=== PATIENT | female | born 2000 | race Caucasian/White ===

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

== ENCOUNTER 2019-05-19 10:54 | Outpatient (RCR) | payer OTHER ==
[~2019-05-19 10:54] MED LIST changes: +IBU800 M1 PO
== END 2019-08-17 | disposition home or self-care (01) ==
LOC: WSOH
DX: S16.1XXA Strain of muscle, fascia and tendon at neck level, initial encounter (principal); S29.012A Strain of muscle and tendon of back wall of thorax, initial encounter; Y99.0 Civilian activity done for income or pay

== ENCOUNTER 2019-12-13 10:44 | Emergency (ER) | payer SELFPAY ==
[~2019-12-13] VITALS: Ht 157.5 cm; Wt 125.0 kg
[2019-12-13] MEDS ORDERED: PROAIR HFA0.09 MG/AC INH (11:16)
[2019-12-13 11:24] LABS: BASO % 0.3 % (0.0-2.0); EOS # 0.2 (0.0-0.7); EOS % 2.7 % (0-4.0); GRAN # 5.2 (1.4-6.5); GRAN % 58.9 % (42.2-75.2); HEMATOCRIT 43.2 % (35.0-45.0); HEMOGLOBIN 14.1 g/dl (12.0-15.0); LYMPH # 2.9 (1.2-3.4); LYMPH % 32.2 % (20.0-51.0); MEAN CELL VOLUME 86 fl (80.0-95.0); MEAN CORPUSCULAR HEMOGLOBIN 28 pg (26.0-32.0); MEAN CORPUSCULAR HGB CONC 33 g/dl (33.0-37.0); MEAN PLATELET VOLUME 9.4 fl (7.4-10.4); MONO # 0.5 (0.1-0.6); MONO % 5.8 % (1.7-9.3); PLATELET COUNT 309 K/mm3 (130-400); RED BLOOD COUNT 5.01 M/mm3 (4.10-5.30); REDCELL DISTRIBUTION WIDTH-CV 12.9 % (11.5-14.5)
[2019-12-13 11:31] LABS: ALANINE AMINOTRANSFERASE 21 U/L (4-34); ALBUMIN 4.5 gm/dL (3.5-5.0); ALKALINE PHOSPHATASE 76 U/L (50-136); ANION GAP 8 mmol/L (7-16); AST,SGOT 24 U/L (15-37); BILIRUBIN,TOTAL 0.6 mg/dL (0.0-1.0); BLOOD UREA NITROGEN 13 mg/dL (7-17); C-REACTIVE PROTEIN 1.1 mg/dL (0.0-0.9); CALCIUM 9.5 mg/dL (8.4-10.2); CARBON DIOXIDE 26 mmol/L (22-30); CHLORIDE 105 mmol/L (98-107); CREATININE, serum 0.65 (0.52-1.25); GLUCOSE 90 mg/dL (74-106); POTASSIUM 4.4 mmol/L (3.4-5.0); SODIUM 138 mmol/L (137-145); TOTAL PROTEIN 7.8 gm/dL (6.4-8.2)
[2019-12-13 11:39] LABS: TROPONIN-I < 0.012 ng/mL (0.000-0.035)
[2019-12-13] MEDS ORDERED: CLEVER CHOICE1 EA20 MC (12:13)
[2019-12-13 12:22] VITALS: BP 138/93; PULSE 102; TEMP 98.1
== END 2019-12-13 12:25 | disposition home or self-care (01) ==
LOC: COL.ER 10:44
PROVIDERS: Physician Assistant
DX: R06.00 Dyspnea, unspecified (principal)
CPT/HCPCS: J7030

== ENCOUNTER 2020-09-28 12:48 | Emergency (ER) | payer SELFPAY ==
[~2020-09-28] VITALS: Ht 157.5 cm; Wt 127.3 kg
[~2020-09-28 12:48] MED LIST changes: +CLEVER CHOICE1 EA20 MC; +PROAIR HFA0.09 MG/AC INH
[2020-09-28 13:08] VITALS: TEMP 98.6
[2020-09-28 14:23] VITALS: BP 121/66
[2020-09-28 14:52] LABS: BASO # 0.1 (0.0-0.2); BASO % 0.5 % (0.0-2.0); EOS # 0.2 (0.0-0.7); EOS % 2.4 % (0-4.0); GRAN # 6.1 (1.4-6.5); GRAN % 62.4 % (42.2-75.2); HEMOGLOBIN 13.1 g/dl (12.5-16.0); LYMPH # 2.7 (1.2-3.4); LYMPH % 27.3 % (20.0-51.0); MEAN CELL VOLUME 88 fl (80.0-100.0); MEAN CORPUSCULAR HEMOGLOBIN 28 pg (27.0-31.0); MEAN CORPUSCULAR HGB CONC 32 g/dl (33.0-37.0); MEAN PLATELET VOLUME 9.5 fl (7.4-10.4); MONO # 0.7 (0.1-0.6); MONO % 7.1 % (1.7-9.3); PLATELET COUNT 314 K/mm3 (130-400); RED BLOOD COUNT 4.68 M/mm3 (4.10-5.30); REDCELL DISTRIBUTION WIDTH-CV 12.7 % (11.5-14.5)
[2020-09-28 14:57] LABS: ANION GAP 9 mmol/L (7-16); BLOOD UREA NITROGEN 10 mg/dL (7-17); CALCIUM 9.3 mg/dL (8.4-10.2); CARBON DIOXIDE 27 mmol/L (22-30); CHLORIDE 104 mmol/L (98-107); CREATININE, serum 0.78 (0.52-1.25); GLUCOSE 87 mg/dL (74-106); POTASSIUM 4.2 mmol/L (3.4-5.0); SODIUM 140 mmol/L (137-145)
[2020-09-28 15:13] LABS: TROPONIN-I < 0.012 ng/mL (0.000-0.035)
[2020-09-28 16:42] VITALS: PULSE 75
== END 2020-09-28 16:05 | disposition home or self-care (01) ==
LOC: COL.ER 12:48
PROVIDERS: Physician Assistant
DX: R07.9 Chest pain, unspecified (principal); F41.9 Anxiety disorder, unspecified; E66.01 Morbid (severe) obesity due to excess calories

== ENCOUNTER → 2021-02-26 | Outpatient (CLI) | payer SELFPAY ==
[~2021-02-26] VITALS: Ht 160 cm; Wt 125.0 kg
[~2021-02-26] MED LIST changes: +ASPIRIN E.C. 8181 MG PO; +MOTRIN 800800 MG/TAB PO; +PRENATAL TABLET PO; +TYLENOL 500MG500 MG PO
[2021-02-26 08:00] VITALS: PULSE 78
[2021-02-26 08:34] VITALS: BP 132/79; PULSE 86; TEMP 97.6
--- NOTE | 2021-02-26 08:43 | NUR ---
0800 PATIENT HERE FOR COMPLAINTS OF PAIN IN VAGINA THAT MOVES TO LEFT SIDE. NO CONTRACTIONS FELT PER PATIENT OR ON MONITOR. EFM ON FHT 125 BABY VERY ACTIVE. ASSESSMENT COMPLETED. DR JARVIS CALLED AND UPDATEED. LAB ORDERS GIVEN
--- NOTE | 2021-02-26 08:45 | NUR ---
0840 ORDERS TO TAKE PATIENT OFF MONITOR AT THIS TIME
[2021-02-26 09:00] LABS: MEAN CELL VOLUME 87 fl (80.0-100.0); MEAN CORPUSCULAR HEMOGLOBIN 29 pg (27.0-31.0); MEAN CORPUSCULAR HGB CONC 33 g/dl (33.0-37.0); MEAN PLATELET VOLUME 10.3 fl (7.4-10.4); PLATELET COUNT 217 K/mm3 (130-400); RED BLOOD COUNT 4.16 M/mm3 (4.10-5.30); REDCELL DISTRIBUTION WIDTH-CV 13.7 % (11.5-14.5)
[2021-02-26 09:04] LABS: HEMATOCRIT 36.3 % (37.0-47.0)
[2021-02-26 09:11] LABS: ALBUMIN 3.4 gm/dL (3.5-5.0); BILIRUBIN,TOTAL 0.3 mg/dL (0.0-1.0); CALCIUM 8.9 mg/dL (8.4-10.2); CREATININE, serum 0.42 (0.52-1.25); POTASSIUM 3.9 mmol/L (3.4-5.0); TOTAL PROTEIN 6.7 gm/dL (6.4-8.2)
[2021-02-26 09:37] LABS: COLLECTION METHOD CLEAN CATCH
[2021-02-26 09:43] LABS: MUCOUS Present /lpf; PH 7 (5-8); URINE APPEARANCE Cloudy; URINE BACTERIA Rare /hpf; URINE BILIRUBIN Negative (NEGATIVE); URINE BLOOD Negative (NEGATIVE); URINE COLOR Yellow; URINE GLUCOSE Negative (NEGATIVE); URINE KETONE Negative (NEGATIVE); URINE LEUKOCYTE ESTERASE Negative (NEGATIVE); URINE NITRATE Negative (NEGATIVE); URINE PROTEIN(semi-quant) Negative (NEGATIVE); URINE RBC 0-2 /hpf; URINE UROBILINOGEN Negative (NEGATIVE); URINE WBC 0-2 /hpf
--- NOTE | 2021-02-26 09:50 | NUR ---
4462 ALL LABS CALLED TO DR JARVIS. ORDERS TO DISMISS TO HOME WITH VERBAL UNDERSTANDING NOTED.
== END ==
LOC: LDRO 08:01
PROVIDERS: Obstetrics & Gynecology
DX: O26.892 Other specified pregnancy related conditions, second trimester (principal); R10.30 Lower abdominal pain, unspecified; Z3A.23 23 weeks gestation of pregnancy

== ENCOUNTER 2021-03-11 18:50 | Outpatient (CLI) | payer MEDICAID ==
[~2021-03-11] VITALS: Ht 160 cm; Wt 125.9 kg
[~2021-03-11 18:50] MED LIST changes: -ASPIRIN E.C. 8181 MG PO; -MOTRIN 800800 MG/TAB PO; -PRENATAL TABLET PO; -TYLENOL 500MG500 MG PO
[2021-03-11] MEDS ORDERED: ASPIRIN E.C. 8181 MG PO (19:13)
[2021-03-11] MEDS ORDERED: PRENATAL TABLET PO (19:14)
[2021-03-11 19:30] VITALS: BP 133/79; PULSE 76; TEMP 97.9
--- NOTE | 2021-03-11 19:40 | NUR ---
1900 G2L1 at 25.2 weeks gestation to L&D with c/o decreased movement. She states that she last felt movement yesterday. She denies regular contractions stating that she feels "maybe one or two vilma hick contractions a day". She denies leaking of fluid or vaginal bleeding. EFMs explained and applied. FHR 130 bpm and reactive. No CTX per toco. VSS. 1909 Dr. Henley on unit and updated on patient. Orders to discharge home after reactive NST received. Plan of care updated with patient and partner. 1932 NST reviewed by this nurse and LINA Zuluaga. Patient off EFM and discharge instructions reviewed. 1939 Patient discharged home in stable condition.
== END 2021-03-11 19:40 | disposition home or self-care (01) ==
LOC: LDRO 18:50
DX: O36.8190 Decreased fetal movements, unspecified trimester, not applicable or unspecified (principal); Z3A.25 25 weeks gestation of pregnancy

== ENCOUNTER 2021-03-25 18:26 | Outpatient (CLI) | payer MEDICAID ==
[~2021-03-25] VITALS: Ht 160 cm; Wt 125.9 kg
[~2021-03-25 18:26] MED LIST changes: +ASPIRIN E.C. 8181 MG PO; +PRENATAL TABLET PO
[2021-03-25 18:50] VITALS: BP 130/62; PULSE 88; TEMP 98.1
[2021-03-25 19:30] VITALS: PULSE 78
== END 2021-03-25 22:50 | disposition home or self-care (01) ==
LOC: LDRO 18:26 → LDR 19:31 → LDRO 22:50
DX: O9A.212 Injury, poisoning and certain other consequences of external causes complicating pregnancy, second trimester (principal); Z3A.27 27 weeks gestation of pregnancy
CPT/HCPCS: OP; J2791

== ENCOUNTER 2021-04-24 14:54 | Outpatient (CLI) | payer MEDICAID ==
[~2021-04-24] VITALS: Ht 160 cm; Wt 129.5 kg
[2021-04-24 15:30] VITALS: BP 130/58; PULSE 97; TEMP 98.2
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
[2021-04-24 15:50] VITALS: BP 131/75; PULSE 85
[2021-04-24 15:57] VITALS: BP 133/74
--- NOTE | 2021-04-24 16:20 | NUR ---
FHT: 1530: DIFFICULTY TRACING FHT DUE TO MOVEMENT AND MATERNAL HABITUS. RN REMAINED AT BS ADJUSTING US 1557: DIFFICULTY DETERMINING FHT DUE TO WANDERING BASELINE. MODERATE VARIABILITY NOTED. STRIP REVIEWED BY DR. JARVIS. PER DR. JARVIS "BABY LOOKS GREAT"
--- NOTE | 2021-04-24 16:21 | NUR ---
1615: PT. AMBULATORY OFF UNIT FOR DISCHARGE. RN WENT OVER DISCHARGE INSTRUCTIONS W/ PT. AND NO QUESTIONS OR CONCERNS AT THIS TIME. WENT OVER RETURN PRECAUTIONS AND PT. STATES UNDERSTANDING. RN ACCOMPANIED PT. TO DOORS OF UNIT AND INFORMED HER TO CALL OR COME BACK IF SHE IS CONCERNED OR HAS ANY QUESTIONS ON HER DISCHARGE PAPERWORK. PT. STABLE AT THIS TIME
== END 2021-04-24 16:15 | disposition home or self-care (01) ==
LOC: LDRO 14:54 → LDR 15:00 → LDRO 16:15
DX: O26.893 Other specified pregnancy related conditions, third trimester (principal); R25.2 Cramp and spasm; Z3A.31 31 weeks gestation of pregnancy
CPT/HCPCS: OP

== ENCOUNTER 2021-05-04 14:28 | Outpatient (CLI) | payer MEDICAID ==
[~2021-05-04] VITALS: Ht 160 cm; Wt 129.1 kg
[2021-05-04 15:00] VITALS: BP 133/82; PULSE 96
--- NOTE | 2021-05-04 15:00 | NUR ---
1430- Pt arrives on unit ambulatory with complaints of cramping since last night. Pt states the cramping is accompanied by diarrhea occationally. Pt denies VB, LOF. +FM but Pt states feels less than normal due to cramping. Pt oriented to room, into bathroom to change into gown. 1440- Pt into bed, EFM and TOCO on and tracing. O2 sat monitor on and tracing maternal HR. VSS. Assessment completed.
[2021-05-04 15:10] LABS: COLLECTION METHOD CLEAN CATCH
[2021-05-04 15:22] LABS: MUCOUS Present /lpf; PH 5 (5-8); URINE APPEARANCE Cloudy; URINE BACTERIA Rare /hpf; URINE BILIRUBIN Negative (NEGATIVE); URINE BLOOD Negative (NEGATIVE); URINE COLOR Amber; URINE GLUCOSE Negative (NEGATIVE); URINE KETONE Negative (NEGATIVE); URINE LEUKOCYTE ESTERASE Negative (NEGATIVE); URINE NITRATE Negative (NEGATIVE); URINE PROTEIN(semi-quant) 1+ (NEGATIVE); URINE UROBILINOGEN Negative (NEGATIVE)
[2021-05-04 15:30] VITALS: BP 135/78; PULSE 95
[2021-05-04 16:00] VITALS: BP 133/77; PULSE 93
--- NOTE | 2021-05-04 16:15 | NUR ---
1600- EFM and TOCO off. Discussed labor precautions, movement counts, when to return to hospital, need to follow-up in office on Friday05/08/21. Questions answered. Pt up to change. 1615- Paperwork and education provided. Pt ambulates off unit with significant other.
== END 2021-05-04 16:15 | disposition home or self-care (01) ==
LOC: LDRO 14:28 → LDR 14:35 → LDRO 16:15
PROVIDERS: Obstetrics & Gynecology
DX: O26.893 Other specified pregnancy related conditions, third trimester (principal); R25.2 Cramp and spasm; Z3A.33 33 weeks gestation of pregnancy
CPT/HCPCS: OP

== ENCOUNTER 2021-05-27 17:07 | Outpatient (CLI) | payer MEDICAID ==
[~2021-05-27] VITALS: Ht 160 cm; Wt 290.0 kg
[2021-05-27 17:15] VITALS: BP 118/63; PULSE 86; TEMP 98.1
[2021-05-27 17:43] VITALS: PULSE 76
--- NOTE | 2021-05-27 17:43 | NUR ---
1713 PATIENT HERE FOR COMPLAINTS THAT SHE HAS NOT FELT BABY MOVE TODAY. EFM ON FHT 120 BABY VERY ACTIVE AT THIS TIME. MOM FEELS MOVEMENT NOW. DENIES NEEDS. DR JARVIS HERE AND UPDATED ON ABOVE INFORMATION. ORDERS TO OBTAIN 20 MA STRIP THE N DIS MISS TO HOME
--- NOTE | 2021-05-27 17:45 | NUR ---
1740 REACTIVE STRIP NOTED AT THIS TIME. DR JARVIS REVIEWED STRIP AND ORDERS TO DISMISS TO HOME.
== END 2021-05-27 17:46 | disposition home or self-care (01) ==
LOC: LDRO 17:07
DX: O36.8130 Decreased fetal movements, third trimester, not applicable or unspecified (principal); Z3A.36 36 weeks gestation of pregnancy

== ENCOUNTER 2021-06-11 11:16 | Outpatient (CLI) | payer MEDICAID ==
[2021-06-11] VITALS (7 sets, daily range): BP systolic 120–136; BP diastolic 68–78; PULSE 72–86; TEMP 98.5
[~2021-06-11] VITALS: Ht 160 cm; Wt 133.2 kg
--- NOTE | 2021-06-11 11:20 | NUR ---
Presents to L&D, as sent over from office for monitoring for BPP 12/07. Patient reports, "I'm so anxious. My anxiety is really bad today."
--- NOTE | 2021-06-11 15:05 | NUR ---
Discharge instructions reviewed with patient and SO who verbalize understanding. Ambulatory off unit.
== END 2021-06-11 15:05 | disposition home or self-care (01) ==
LOC: LDRO 11:16 → LDR 11:20 → LDRO 15:05
DX: O36.8390 Maternal care for abnormalities of the fetal heart rate or rhythm, unspecified trimester, not applicable or unspecified (principal); Z3A.38 38 weeks gestation of pregnancy
CPT/HCPCS: OP

== ENCOUNTER → 2021-06-20 | Outpatient (CLI) | payer MEDICAID ==
[~2021-06-20] MED LIST changes: +MOTRIN 800800 MG/TAB PO; +TYLENOL 500MG500 MG PO
== END ==
LOC: ZCOL.LAB 06-18 18:06
DX: Z20.822 Contact with and (suspected) exposure to COVID-19 (principal)

== ENCOUNTER 2021-06-23 13:29 | Inpatient (IN) | payer MEDICAID ==
[2021-06-23] VITALS (21 sets, daily range): BP systolic 101–138; BP diastolic 49–78; PULSE 73–113; TEMP 98.5–98.9
[~2021-06-23] VITALS: Ht 160 cm; Wt 133.6 kg
[~2021-06-23 13:29] MED LIST changes: -MOTRIN 800800 MG/TAB PO; -TYLENOL 500MG500 MG PO
--- NOTE | 2021-06-23 13:35 | NUR ---
1335- Pt arrives on unit ambulatory with spouse. Pt states contractions are stronger and every 2-5 mins apart. She says she has had spotting but denies LOF. +FM per Pt. Pt into bathroom to change into gown. 1339- Pt into bed, EFM and TOCO on and tracing well. VSS. Assessment completed.
[2021-06-23] MEDS ORDERED: TYLENOL 500MG500 MG PO (13:50)
--- NOTE | 2021-06-23 14:05 | NUR ---
1405- Pt updated on POC, recheck in 1hr. Pt denies questions. EFM and TOCO off. Pt up to ambulate or use BB.
[2021-06-23 15:39] LABS: BASO % 0.2 % (0.0-2.0); EOS % 0.2 % (0-4.0); GRAN # 12.1 K/mm3 (1.4-6.5); GRAN % 83.2 % (42.2-75.2); HEMATOCRIT 35.6 % (37.0-47.0); HEMOGLOBIN 11.8 g/dl (12.5-16.0); LYMPH # 1.3 K/mm3 (1.2-3.4); MEAN CELL VOLUME 81 fl (80.0-100.0); MEAN CORPUSCULAR HEMOGLOBIN 27 pg (27.0-31.0); MEAN CORPUSCULAR HGB CONC 33 g/dl (33.0-37.0); MEAN PLATELET VOLUME 10.4 fl (7.4-10.4); MONO % 7.1 % (1.7-9.3); PLATELET COUNT 270 K/mm3 (130-400)
--- NOTE | 2021-06-23 15:45 | NUR ---
1532- ISMAEL Gilbert at bedside for epidural placemnt. Pt assisted to sitting on side of bed. US not tracing maternal HR well due to maternal position. O2 sat on and tracing maternal HR. Pt very anxious and not coping with procedure well, encouraged to breathe slowly and relax. 1540- Single shot, see anesthesia record. 1548- Pt assisted to semi-fowlers with WL. EFM and TOCO adjusted and tracing well.
--- NOTE | 2021-06-23 18:08 | NUR ---
175- Dr Astudillo and this RN to bedside, Pt feeling pressure. SVE by , complete. Pt and room prepped for delivery. LINA Huffman steps as labor nurse so this RN can be Nursery RN due to nursery acuity and change of shift. 1800- Pt begins pushing with UCs. Dr Astudillo at bedside. 1805- Dr Astudillo called to bedside. 1807- of viable female infant. 1812- Spont. delivery of placenta. Pitocin started at 333ml/hr. Fundus massaged to firm by Armida, LINA, small amount of bleeding noted. 1st degree laceration repaired by . Pericare completed. Ice pack and clean chux under Pt. Pt repositioned to high holm with infant [id number]. 182- Bedside report given to LINA Hylton.
[2021-06-23] MEDS ORDERED: MOTRIN 800800 MG/TAB PO (19:58)
--- NOTE | 2021-06-23 20:15 | NUR ---
2014- IV SITE TO SALINE LOCK. PT ABLE TO LIFT LEGS OFF BED. EPIDURAL CATHETER REMOVED CHARTED. PT TOLERATED WELL. PT ASSISTED TO AMBULATE TO BATHROOM, STEADY ON FEET. PT ABLE TO VOID 200ML WITHOUT DIFFICULTY. PT INSTRUCTED ON AND PERFORMS PERICARE. NORMAL LOCHIA DISCUSSED AND QUESTIONS ANSWERED. CLEAN GOWN, PAD, AND PANTIES PROVIDED. 2034- PT AMBULATES TO ROOM 208. BELONGINGS WITH PT. PT ORIENTED TO ROOM AND CALL LIGHTS. QUESTIONS ANSWERED. PT DENIES FURTHER NEEDS AT THIS TIME.
[2021-06-24 02:35] VITALS: BP 111/63; PULSE 79; TEMP 97.8
[2021-06-24 08:00] VITALS: BP 124/68; PULSE 97; TEMP 98.1
[2021-06-24 16:50] VITALS: BP 134/76; PULSE 86; TEMP 98.1
[2021-06-24 19:50] VITALS: BP 125/78; PULSE 88; TEMP 97.6
[2021-06-25 07:12] VITALS: BP 100/71; PULSE 80; TEMP 97.8
== END 2021-06-25 12:20 | disposition home or self-care (01) | DRG 807 ==
LOC: LDRO 13:29 → LDR 13:30 → LDRO 15:05 → LDR 15:06 → OB 20:35
PROVIDERS: Student in an Organized Health Care Education/Training Program; ADMIT Obstetrics & Gynecology
PROC: 10E0XZZ Delivery of Products of Conception, External Approach (ICD-10-PCS; principal; 2021-06-23)
PROC: 0HQ9XZZ Repair Perineum Skin, External Approach (ICD-10-PCS; 2021-06-23)
DX: O99.214 Obesity complicating childbirth (principal); Z37.0 Single live birth; O99.344 Other mental disorders complicating childbirth; F41.8 Other specified anxiety disorders; O77.0 Labor and delivery complicated by meconium in amniotic fluid; O70.0 First degree perineal laceration during delivery; Z3A.40 40 weeks gestation of pregnancy
CPT/HCPCS: J2590; J2791; J2795; J7120

== ENCOUNTER 2022-03-16 19:09 | Emergency (ER) | payer MEDICAID ==
[~2022-03-16] VITALS: Ht 157.5 cm; Wt 122.7 kg
[~2022-03-16 19:09] MED LIST changes: +MOTRIN 800800 MG/TAB PO; +TYLENOL 500MG500 MG PO
[2022-03-16 19:23] VITALS: BP 118/81; PULSE 103; TEMP 98
== END 2022-03-16 20:03 | disposition home or self-care (01) ==
LOC: COL.ER 19:09
DX: N61.1 Abscess of the breast and nipple (principal)

== ENCOUNTER 2022-10-25 08:33 | Emergency (ER) | payer BC, MEDICAID ==
[~2022-10-25] VITALS: Ht 160 cm; Wt 128.2 kg
[2022-10-25 08:47] VITALS: TEMP 98.9
[2022-10-25 09:41] LABS: COLLECTION METHOD CLEAN CATCH
[2022-10-25 09:56] LABS: MUCOUS Present (NOT PRESENT); SQUAMOUS EPITHELIAL 20-50 /hpf (0-10); URINE BACTERIA None Seen /hpf (NONE SEEN); URINE RBC >50 /hpf (0-2)
[2022-10-25 09:59] LABS: URINE APPEARANCE Cloudy (CLEAR/HAZY); URINE COLOR Amber (YELLOW)
[2022-10-25 10:00] LABS: PH 5.5 (5.0-8.5); URINE BLOOD 3+ (NEGATIVE); URINE GLUCOSE Negative (NEGATIVE); URINE KETONE 1+ (NEGATIVE); URINE NITRATE Negative (NEGATIVE); URINE PROTEIN(semi-quant) 3+ (NEGATIVE)
[2022-10-25] MEDS ORDERED: CEFTIN 250250 MG/TAB PO (10:52)
[2022-10-25 11:18] VITALS: BP 136/87; PULSE 100
== END 2022-10-25 11:18 | disposition home or self-care (01) ==
LOC: COL.ER 08:33
PROVIDERS: Family Medicine
DX: O23.12 Infections of bladder in pregnancy, second trimester (principal); N30.01 Acute cystitis with hematuria; Z3A.18 18 weeks gestation of pregnancy

== ENCOUNTER 2022-11-28 10:33 | Emergency (ER) | payer BC, MEDICAID ==
[~2022-11-28] VITALS: Ht 157.5 cm; Wt 129.5 kg
[~2022-11-28 10:33] MED LIST changes: +CEFTIN 250250 MG/TAB PO
[2022-11-28 10:49] VITALS: TEMP 98.4
[2022-11-28 11:28] LABS: BASO % 0.2 % (0.0-2.0); EOS # 0.1 K/mm3 (0.0-0.7); EOS % 0.6 % (0.0-4.0); GRAN # 12.3 K/mm3 (1.4-6.5); GRAN % 80.2 % (42.2-75.2); HEMOGLOBIN 11.5 g/dl (12.5-16.0); MEAN CELL VOLUME 83 fl (80.0-100.0); MEAN CORPUSCULAR HEMOGLOBIN 28 pg (27-31); MEAN CORPUSCULAR HGB CONC 34 g/dl (33.0-37.0); MONO # 0.9 K/mm3 (0.1-0.6); MONO % 5.5 % (1.7-9.3); PLATELET COUNT 298 K/mm3 (130-400); RED BLOOD COUNT 4.06 M/mm3 (4.10-5.30); REDCELL DISTRIBUTION WIDTH-CV 14.6 % (11.5-14.5)
[2022-11-28 11:31] LABS: HEMATOCRIT 33.7 % (37.0-47.0)
[2022-11-28 11:38] LABS: ALANINE AMINOTRANSFERASE 52 U/L (0-55); ALBUMIN 2.7 gm/dL (3.5-5.0); ALKALINE PHOSPHATASE 119 U/L (40-150); ANION GAP 10 mmol/L (7-16); AST,SGOT 29 U/L (5-34); BILIRUBIN,TOTAL 0.8 mg/dL (0.2-1.2); BLOOD UREA NITROGEN 4 mg/dL (7-19); CALCIUM 9.1 mg/dL (8.4-10.2); CARBON DIOXIDE 20 mmol/L (22-29); CHLORIDE 108 mmol/L (98-107); CREATININE, serum 0.59 mg/dL (0.57-1.11); GLUCOSE 76 mg/dL (70-99); POTASSIUM 3.6 mmol/L (3.5-4.5); SODIUM 138 mmol/L (136-145); TOTAL PROTEIN 7.1 gm/dL (6.2-8.1)
[2022-11-28 11:44] LABS: TROPONIN-I < 0.010 ng/mL (0.00-0.033)
[2022-11-28] MEDS ORDERED: ZITHROMAX Z PA250 MG PO (12:07)
[2022-11-28] MEDS ORDERED: AMOXICILLIN 50500 MG PO (12:07)
[2022-11-28 12:53] VITALS: BP 136/63; PULSE 118
== END 2022-11-28 12:53 | disposition home or self-care (01) ==
LOC: COL.ER 10:33
PROVIDERS: Emergency Medicine
DX: O99.512 Diseases of the respiratory system complicating pregnancy, second trimester (principal); J06.9 Acute upper respiratory infection, unspecified; Z3A.21 21 weeks gestation of pregnancy; Z20.822 Contact with and (suspected) exposure to COVID-19
CPT/HCPCS: J7030

== ENCOUNTER → 2023-01-02 | Outpatient (CLI) | payer BC, MEDICAID ==
[~2023-01-02] VITALS: Ht 160 cm; Wt 128.6 kg
[~2023-01-02] MED LIST changes: +AMOXICILLIN 50500 MG PO; +ASPIRIN 81M81 MG/TA2 PO; +ZITHROMAX Z PA250 MG PO; +ZOLOFT 100MG100 MG PO
--- NOTE | 2023-01-02 14:30 | NUR ---
Pt arrived on unit ambulatory and with concerns for increased vaginal discharge and back pain that radiates to the abdomen. Pt denies any large gushes of fluid or vaginal bleedind and reports normal movement. EFM and toco monitors started. Difficult tracing FHR due to maternal habitus. Additional RN to the bedside for assistance. [place] monitor started. SVE by this RN closed/thick/high with negative amniotrace x2. Dr. Astudillo notified. See physician notification for details.
[2023-01-02 15:30] VITALS: BP 135/67; PULSE 105; TEMP 98.8
--- NOTE | 2023-01-02 16:20 | NUR ---
Difficult tracing FHR due to maternal habitus and age. This RN at the bedside with frequent attempts to adjust EFM.
[2023-01-02 16:30] VITALS: PULSE 106
--- NOTE | 2023-01-02 17:05 | NUR ---
Difficult tracing FHR due to maternal habitus and age. This RN at the bedside with frequent attempts to adjust EFM.
[2023-01-02 17:29] LABS: COLLECTION METHOD CLEAN CATCH
[2023-01-02 17:30] VITALS: PULSE 101
[2023-01-02 17:58] LABS: MUCOUS Present (NOT PRESENT); URINE BACTERIA Rare /hpf (NONE SEEN); URINE RBC 0-2 /hpf (0-2)
[2023-01-02 17:59] LABS: URINE APPEARANCE Clear (CLEAR/HAZY); URINE BLOOD Negative (NEGATIVE); URINE COLOR Yellow (YELLOW); URINE GLUCOSE Negative (NEGATIVE); URINE KETONE 4+ (NEGATIVE); URINE NITRATE Negative (NEGATIVE); URINE PROTEIN(semi-quant) 1+ (NEGATIVE); URINE UROBILINOGEN >=8.0 E.U/dL (0.2-1.0)
[2023-01-02 18:05] VITALS: PULSE 105
--- NOTE | 2023-01-02 18:25 | NUR ---
Discharge instructions and follow up care reviewed with pt. Pt verbalized an understanding, agreed with the plan and states no questions or concerns at this time.
== END ==
LOC: EDSTATUS 08:32 → LDRO 14:20
PROVIDERS: Student in an Organized Health Care Education/Training Program
DX: Z34.92 Encounter for supervision of normal pregnancy, unspecified, second trimester (principal); Z3A.25 25 weeks gestation of pregnancy
CPT/HCPCS: J7120